=== PATIENT | male | born 1995 | race Caucasian/White ===

== ENCOUNTER 2016-12-13 19:09 | Emergency (ER) | payer OTHER ==
[~2016-12-13] VITALS: Ht 172.7 cm; Wt 72.6 kg
[2016-12-13] MEDS ORDERED: ADVIL200 MG PO (19:19)
== END 2016-12-13 19:32 | disposition home or self-care (01) ==
LOC: ED 19:09
DX: S00.03XA Contusion of scalp, initial encounter (principal); V89.2XXA Person injured in unspecified motor-vehicle accident, traffic, initial encounter
CPT/HCPCS: 99282